=== PATIENT | female | born 1975 | race Caucasian/White ===

== ENCOUNTER 2018-02-25 15:30 | Emergency (ER) | payer OTHER, BC ==
--- NOTE | 2018-02-25 16:39 | EDM.PDOC ---
ED HPI GENERAL MEDICAL PROBLEM - General Chief Complaint: ENT Problem Stated Complaint: HIT IN THE NOSE Time Seen by Provider: 02/25/18 15:40 Source of Information: Reports: Patient History Limitations: Reports: No Limitations - History of Present Illness INITIAL COMMENTS - FREE TEXT/NARRATIVE: 43-year-old female presents for evaluation and treatment of injury to the nose. Patient reports she was at work. She works for school as a para. Reports that a child was getting out of an inflatable obstacle course when she bumped her nose. She reports bleeding initially but this has been controlled upon arrival to the ER. She reports a deformity to the nose. Reports swelling to the nose. No loss of consciousness. No trauma to the teeth. No pain to the orbits. No previous history of trauma to the nose. Onset: Today Location: Reports: Face Nose Pain Score (Numeric/FACES): 3 - Related Data Allergies Allergy/AdvReac Type Severity Reaction Status Date / Time No Known Allergies Allergy Verified 02/25/18 15:44 Home Meds: Home Meds . [No Known Home Meds] 02/25/18 [History] Past Medical History - Past Health History Medical/Surgical History: Denies Medical/Surgical History Social & Family History - Family History Family Medical History: Noncontributory - Tobacco Use Smoking Status *Q: Never Smoker - Caffeine Use Caffeine Use: Reports: Soda, Tea - Recreational Drug Use Recreational Drug Use: No ED ROS ENT - Review of Systems Review Of Systems: See Below HEENT: Reports: Nosebleed, Nose Pain (reports deformity). Denies: Dental Pain Neurological: Denies: Syncope ED EXAM, ENT - Physical Exam Exam: See Below Exam Limited By: No Limitations General Appearance: Alert, WD/WN, No Apparent Distress Eye Exam: Bilateral Eye: EOMI, Normal Inspection, PERRL Ears: Normal External Exam, Normal Canal, Hearing Grossly Normal, Normal TMs Nose: Nasal Deformity, Nasal Swelling, Dried Blood (left nare). No: Clear Rhinorrhea, Nasal Tenderness, Septal Hematoma, Septal Perforation Mouth/Throat: Normal Inspection, Normal Gums, Normal Lips, Normal Oropharynx, Normal Teeth Respiratory/Chest: No Respiratory Distress, Lungs Clear, Normal Breath Sounds Cardiovascular: Normal Peripheral Pulses, Regular Rate, Rhythm, No Murmur Neurological: Alert, Oriented, Normal Cognition Psychiatric: Normal Affect, Normal Mood Skin: Warm, Dry, Normal Color Course - Vital Signs Last Recorded V/S: Last Vital Signs Temp 36.3 C 02/25/18 15:40 Pulse 71 02/25/18 15:40 Resp 20 02/25/18 15:40 BP 143/88 H 02/25/18 15:40 Pulse Ox 98 02/25/18 15:40 - Radiology Interpretation Free Text/Narrative:: xray oft the nasal bones reviewed by myself and Dr. Bartltet shows a minimally displaced deformity to the nasal bones, questionably old. Septal deviation, questionable fracture. - Re-Assessments/Exams Free Text/Narrative Re-Assessment/Exam: 02/25/18 16:26 Xrays reviewed by myself and Dr. Bartlett. Offered pain medication, patient declined. Encouraged icing. If patient continues to have a deformity once swelling goes down or any difficulty breathing through the nares (currently has none) consultation with ENT appropriate. Recommended Dr. Lion or Dr. Weber in [place]. Discharge instructions as documented. Departure - Departure Time of Disposition: 16:33 Disposition: Home, Self-Care 01 Condition: Fair Clinical Impression: Nasal septal deviation, Closed fracture of nasal septum - Discharge Information Instructions: Nasal Fracture, [id number] Referrals: Micki Read PA-C [Primary Care Provider] - Danilo Lion MD [Ordering Only Provider] - Forms: ED Department Discharge Additional Instructions: Ice the nose as much as possible. OTC tylenol or motrin as needed for pain. Bring your disc to ENT follow-up appointment. Recommend follow-up within [address] Lion at [facility], sinus an allergy. Call [phone] to schedule with him. He may also see Dr. Weber, ear, nose [facility] throat [place]. Please return to the ER if your symptoms change or worsen.
--- NOTE | 2018-02-25 17:41 | CR ---
Nasal bone: Three views of the nasal bone were obtained. Slight deformity of the nasal bone is seen likely representing old healed fracture. No acute nasal bone fracture is appreciated. Visualized sinuses are clear. Other visualized bony structures are intact. Impression: 1. Findings suspicious for old healed fracture. No acute bony abnormality is seen. Diagnostic code #2
== END 2018-02-25 16:53 | disposition home or self-care (01) ==
LOC: JD.ED 15:30
DX: S02.2XXA Fracture of nasal bones, initial encounter for closed fracture (principal); J34.2 Deviated nasal septum; Y99.0 Civilian activity done for income or pay; W22.8XXA Striking against or struck by other objects, initial encounter
CPT/HCPCS: 70160; 70160-26; 99283

== ENCOUNTER 2025-09-15 09:35 | Emergency (ER) | payer BC ==
[2025-09-15 10:18] LABS: BASOPHILS ABSOLUTE AUTO 0.0 K/mm3 (0.0-0.2); BASOPHILS PERCENT AUTO 0.3 % (0.0-1.0); EOSINOPHILS ABSOLUTE AUTO 0.0 K/mm3 (0.0-0.4); EOSINOPHILS PERCENT AUTO 0.1 % (0.0-6.0); IMMATURE GRAN ABSOLUTE AUTO 0.09 K/mm3 (0.00-0.05); IMMATURE GRAN PERCENT AUTO 0.7 % (0.0-0.4); LYMPHOCYTES ABSOLUTE AUTO 1.1 K/mm3 (1.0-4.8); LYMPHOCYTES PERCENT AUTO 8.4 % (24.0-44.0); MEAN PLATELET VOLUME 9.3 fl (9.4-12.3); MONOCYTES ABSOLUTE AUTO 0.6 K/mm3 (0.0-0.8); MONOCYTES PERCENT AUTO 4.6 % (0.0-8.0); NEUTROPHILS ABSOLUTE AUTO 10.7 K/mm3 (1.8-7.7); NEUTROPHILS PERCENT AUTO 85.9 % (41.0-71.0); NRBC ABSOLUTE 0.00 (0.00-0.02); NRBC PERCENT 0.0 % (0.0-0.2); PLATELET COUNT,PLT 246 K/mm3 (150-400); RED BLOOD CELL COUNT 4.80 M/mm3 (4.10-5.30); WHITE BLOOD CELL COUNT,WBC 12.47 K/mm3 (3.9-11.3)
[2025-09-15 10:23] LABS: APPEARANCE,URINE SLT CLOUDY (Clear); GLUCOSE,URINE NEGATIVE (Negative); OCCULT BLOOD,URINE 1+ (Negative)
[2025-09-15] MEDS: Ondansetron 4 MG/2 ML SDV IVPUSH ONE (10:23)
[2025-09-15 10:39] LABS: A/G RATIO 1.2 (1-2); ALANINE AMINOTRANSFERASE,ALT 15.0 U/L (14-59); ASPARTATE AMNIOTRANSFERASE,AST 18.0 U/L (15-37); BILIRUBIN TOTAL 0.6 mg/dL (0.2-1.0); BLOOD UREA NITROGEN,BUN 16.0 mg/dL (7-18); CARBON DIOXIDE,CO2 26.0 mEq/L (21-32); CHLORIDE,CL 104.0 mEq/L (98-107); CREATININE 0.9 mg/dL (0.55-1.02); EST CRCL DRUG DOSING (CG) 57.83 mL/min; ESTIMATED GFR 77.0 mL/min (>60); GLUCOSE RANDOM 134.0 mg/dL (70-99); POTASSIUM,K 3.8 mEq/L (3.5-5.1); PROTEIN TOTAL,TP 7.7 g/dl (6.4-8.2); SODIUM,NA 143.0 mEq/L (136-145)
[2025-09-15] MEDS: Iopamidol 612 MG/ML 100 ML Bottle IVPUSH ONE (10:56)
[2025-09-15] MEDS: Sodium Chloride 0.9% 10 ML Syringe FLUSH PRN (10:56)
[2025-09-15] MEDS: Nitrofurantoin Monohydrate/Macrocrystalline 100 MG Cap PO ONE (13:47)
== END 2025-09-15 13:48 | disposition home or self-care (01) ==
LOC: JD.ED 09:35
DX: R10.9 Unspecified abdominal pain (principal); N39.0 Urinary tract infection, site not specified
CPT/HCPCS: 36415; 74177; 80053; 81001; 83690; 85025; 87086; 96361; 96374; 99284; A9270; J2405; J7030; Q9967